=== PATIENT | male | born 1955 | race Caucasian/White ===

== ENCOUNTER → 2016-05-17 | Outpatient (CLI) | payer OTHER ==
[~2016-05-17] MED LIST: CHOL100010 PO; DOCU-94; HYDR-4079 PO; IBUP-1050 PO; ONDA8TAB7 PO; SENN-91; chemotherapy; compazine PO
--- NOTE | 2016-05-17 16:11 | DIAGNOSTIC IMAGING REPORT ---
CHEST 2 VIEWS ROUTINE CLINICAL HISTORY: Chest congestion. COMPARISON STUDY: Chest CT May 18, 2013. FINDINGS: Lung volumes are at the lower limits of normal. This is unchanged. There is no consolidation to suggest pneumonia. Linear left basilar opacity is suggestive of atelectasis. Mild cardiomegaly is unchanged. There is no evidence of pulmonary edema. IMPRESSION: 1. No acute cardiopulmonary findings. 2. Stable mild cardiomegaly. Electronically signed by: Eliazar Alvarez M.D. 05/17/2016 4:09 PM Dictated Date/Time: 05/17/2016 4:07 PM
[2016-05-17 16:35] LABS: BASO % 2.7 %; COMPLETE YES; EOS % 1.6 %; HEMATOCRIT 36.2 % (42-52); LYMPH % 13.4 %; MEAN CELL VOLUME 96.3 fL (80-100); MEAN CORPUSCULAR HEMOGLOBIN 33.2 pg (25-34); MEAN CORPUSCULAR HGB CONC 34.5 g/dl (32-36); MONO % 9.1 %; NEUT % 73.2 %; PLATELET COUNT 143 K/uL (130-400); RED BLOOD COUNT 3.76 M/uL (4.7-6.1); WHITE BLOOD COUNT 3.73 K/uL (4.8-10.8)
== END | disposition home or self-care (01) ==
LOC: C.RAD 15:31
PROVIDERS: ATTEND Family Medicine
DX: R09.89 Other specified symptoms and signs involving the circulatory and respiratory systems (principal)